=== PATIENT | female | born 1950 | race American Indian/Alaskan Native ===

== ENCOUNTER 2017-09-19 07:08 | Day surgery (SDC) | payer MEDICARE ==
[2017-09-12 13:24] VITALS: BMI 27.3
[2017-09-19] MEDS ORDERED: Sodium Chloride 0.9% 1,000 ML IV SCH (09:15)
[2017-09-19] MEDS ORDERED: Lidocaine 2% Inj (20ml) ONE (09:17)
[2017-09-19] MEDS ORDERED: Propofol 10 mg/ml Inj (20 ML) ONE (09:17)
[2017-09-19 09:57] VITALS: RESP 14; TEMP 98.5
[2017-09-19 10:15] VITALS: BP 145/77; PULSE 67; O2SAT 99
== END 2017-09-19 11:04 | disposition home or self-care (01) ==
LOC: ENDO 07:08
PROVIDERS: ATTEND Internal Medicine Gastroenterology
DX: Z12.11 Encounter for screening for malignant neoplasm of colon (principal); K63.5 Polyp of colon; K57.30 Diverticulosis of large intestine without perforation or abscess without bleeding; K64.8 Other hemorrhoids
CPT/HCPCS: 45380; 88305; J2704; J7040 ×2